=== PATIENT | female | born 1970 | race Caucasian/White ===

== ENCOUNTER 2021-09-21 15:43 | Emergency (ER) | payer OTHER ==
[2021-09-21 18:12] LABS: BASOPHIL 0.6 % (0-2); EOSINOPHIL 2.9 % (0-5); HCT 44.8 % (37.0-47.0); HGB 14.6 g/dl (12.5-16.0); LYMPHOCYTE 23.9 % (15-48); MCH 32.2 pg (25.0-31.0); MCHC 32.6 g/dL (32.0-36.0); MCV 98.9 fL (78.0-100.0); MONOCYTE 8.5 % (0-12); NEUTROPHIL 63.9 % (41-80); NRBC 0; PLT 359 K/uL (150-400); RBC 4.53 M/uL (4.20-5.40); RDW 11.9 % (11.5-14.0)
[2021-09-21 18:27] LABS: ALBUMIN 3.5 g/dL (3.4-5.0); ALKALINE PHOSHATASE 112 U/L (46-116); ALT 18 U/L (14-59); AST 15 U/L (15-37); BILIRUBIN - TOTAL 0.2 mg/dL (0.2-1.0); BUN 14 mg/dL (7-18); BUN/CREAT RATIO (CALC) 27.5 RATIO; CHLORIDE 104 mmol/L (98-107); CO2 (BICARBONATE) 33 mmol/L (21-32); CREATININE 0.51 mg/dL (0.51-0.95); GLOBULIN (CALCULATION) 3.4 g/dL; GLUCOSE 83 mg/dL (74-106); POTASSIUM 4.4 mmol/L (3.5-5.1); TOTAL PROTEIN 6.9 g/dL (6.4-8.2)
[2021-09-21 18:41] LABS: BILIRUBIN NEGATIVE (NEGATIVE); BLOOD NEGATIVE Ery/uL (NEGATIVE); CLARITY CLEAR (CLEAR); COLOR YELLOW (YELLOW); GLUCOSE (U) NORMAL (NORMAL); LEUKOCYTES TRACE Leu/uL (NEGATIVE); NITRITE NEGATIVE (NEGATIVE); PROTEIN NEGATIVE (NEGATIVE); UROBILINOGEN 0.2 mg/dL (0.2-1.0)
[2021-09-21 18:45] LABS: AMPHETAMINES NEGATIVE (NEGATIVE); BARBITURATES NEGATIVE (NEGATIVE); ECSTASY (MDMA) NEGATIVE (NEGATIVE); MARIJUANA (THC) NEGATIVE (NEGATIVE); METHADONE NEGATIVE (NEGATIVE); OPIATES NEGATIVE (NEGATIVE); OXYCODONE NEGATIVE (NEGATIVE)
[2021-09-21 18:53] LABS: SQUAMOUS EPITHELIAL CELLS RARE; URINARY WBC RARE
[2021-09-21 19:01] LABS: CORONAVIRUS 2019 SARS-COV-2 NEGATIVE (NEGATIVE); INFLUENZA A NAA NEGATIVE (NEGATIVE)
[2021-09-21] MEDS ORDERED: VIBRAMYCIN100 MG PO (20:25)
== END 2021-09-21 20:46 | disposition home or self-care (01) ==
LOC: FER 15:43
PROVIDERS: Nurse Practitioner Family
DX: L03.116 Cellulitis of left lower limb (principal); J44.9 Chronic obstructive pulmonary disease, unspecified; F17.210 Nicotine dependence, cigarettes, uncomplicated; Z20.822 Contact with and (suspected) exposure to COVID-19
CPT/HCPCS: 36415; 70450; 80053; 80305; 81001; 85025; 85379; 93971; G0480; J7030; U0002